=== PATIENT | male | born 2000 | race Caucasian/White ===

== ENCOUNTER 2018-01-20 18:31 | Emergency (ER) | payer BC ==
[2018-01-20] MEDS ORDERED: CEPHALEXIN 250 MG CAPSULE PO ONE (19:00)
[2018-01-20] MEDS ORDERED: CEPH-264 PO (19:04)
--- NOTE | 2018-01-20 19:04 | PHYS DOC ---
Past History Past Medical History: No Pertinent History Past Surgical History: No Surgical History Alcohol Use: None Drug Use: None Adult General Chief Complaint Chief Complaint: KNEE INJURY HPI HPI 17-year-old otherwise healthy male presents with an abrasion to his left knee. He states he slid into a base injuring his knee yesterday. He comes in today concerned that there is redness now extending from the abrasion. He denies any fever chills or sweats. He states the area does not feel warm. Dad states he's concerned that he may have an early wound infection.[] Review of Systems Review of Systems Review of systems is as above otherwise unremarkable Physical Exam Physical Exam Constitutional: Well developed, well nourished, no acute distress, non-toxic appearance. [] HENT: Normocephalic, atraumatic, bilateral external ears normal, oropharynx moist, no oral exudates, nose normal. [] Eyes: PERRLA, EOMI, conjunctiva normal, no discharge. [] Neck: Normal range of motion, no tenderness, supple, no stridor. [] Cardiovascular:Heart rate regular rhythm, no murmur [] Lungs & Thorax: Bilateral breath sounds clear to auscultation [] Abdomen: Bowel sounds normal, soft, no tenderness, no masses, no pulsatile masses. [] Skin: Patient has a silver dollar sized scab on his left knee with erythema extending proximally about 5 cm wide and 10 cm superior from the wound it is not warm to touch[] Back: No tenderness, no CVA tenderness. [] Extremities: No tenderness, no cyanosis, no clubbing, ROM intact, no edema. [] Neurologic: Alert and oriented X 3, normal motor function, normal sensory function, no focal deficits noted. [] Psychologic: Affect normal, judgement normal, mood normal. [] Current Patient Data Vital Signs Vital Signs Date Time Temp Pulse Resp B/P (MAP) Pulse Ox O2 Delivery O2 Flow Rate FiO2 01/20/18 18:48 97.9 76 16 99 Room Air EKG EKG [] Radiology/Procedures Radiology/Procedures [] Course & Med Decision Making Course & Med Decision Making Pertinent Labs and Imaging studies reviewed. (See chart for details) [] Dragon Disclaimer Dragon Disclaimer This electronic medical record was generated, in whole or in part, using a voice recognition dictation system. Departure Departure: Impression: Primary Impression: Cellulitis Disposition: HOME, SELF-CARE Condition: STABLE Referrals: CORINA VALE MD (PCP) Patient Instructions: Cellulitis Additional Instructions: Take medication as directed. Return to the emergency department with any new or concerning symptoms Scripts Cephalexin (KEFLEX) 500 Mg Capsule 1 CAP PO TID, #30 CAP Prov: KAYE HELTON DO 01/20/18 Problem Qualifiers Primary Impression: Cellulitis Site of cellulitis: extremity Site of cellulitis of extremity: lower extremity Laterality: left Qualified Codes: L03.116 - Cellulitis of left lower limb KAYE HELTON DO Jan 20, 2018 19:04
[2018-01-20] MEDS ORDERED: CEPHALEXIN 250 MG CAPSULE ONE (19:08)
[2018-01-20 19:10] VITALS: BP 110/64
== END 2018-01-20 19:20 | disposition home or self-care (01) ==
LOC: ER 18:31
DX: L03.116 Cellulitis of left lower limb (principal); S80.212A Abrasion, left knee, initial encounter; X58.XXXA Exposure to other specified factors, initial encounter; Y93.89 Activity, other specified; Y99.8 Other external cause status; Y92.89 Other specified places as the place of occurrence of the external cause
CPT/HCPCS: 99283